=== PATIENT | male | born 1950 | race Hispanic/Latino ===

== ENCOUNTER → 2018-10-30 | Outpatient (CLI) | payer MEDICARE, OTHER | END | disposition home or self-care (01) | LOC: OIH 10:47 | PROVIDERS: ATTEND Family Medicine | DX: J44.9 Chronic obstructive pulmonary disease, unspecified (principal); I10 Essential (primary) hypertension; Z87.891 Personal history of nicotine dependence; M85.88 Other specified disorders of bone density and structure, other site; M47.814 Spondylosis without myelopathy or radiculopathy, thoracic region | CPT/HCPCS: 71046 ==

== ENCOUNTER 2023-04-19 16:42 | Emergency (ER) | payer OTHER ==
[~2023-04-19] VITALS: Ht 167.6 cm; Wt 68.0 kg
[2023-04-19 16:48] VITALS: BP 164/96; PULSE 88; RESP 16
[2023-04-19 17:48] LABS: BASOPHILS # (AUTO) 0.07 K/uL (0.00-0.20); BASOPHILS % (AUTO) 0.4 % (0.0-5.0); EOSINOPHILS % (AUTO) 1.6 % (0.0-8.0); HEMATOCRIT 48.5 % (42-54); IMMATURE GRANULOCYTE ABSOLUTE 0.08 K/uL (0-1); LYMPHOCYTES # (AUTO) 1.4 K/uL (1.0-4.8); LYMPHOCYTES % (AUTO) 7.6 % (21.0-51.0); MEAN CORPUSCULAR HEMOGLOBIN 31.5 pg (27.0-33.0); MEAN CORPUSCULAR HGB CONC 33.8 g/dL (32.0-36.0); MEAN CORPUSCULAR VOLUME 93.3 fL (79-99); MONOCYTES % (AUTO) 5.3 % (3.0-13.0); NEUTROPHILS % (AUTO) 84.7 % (40.0-77.0); PLATELET COUNT (AUTO) 217 K/uL (130-400); RED CELL DISTRIBUTION WIDTH 13.9 % (11.0-15.5); WHITE BLOOD COUNT (AUTO) 18.9 K/uL (4.8-10.8)
[2023-04-19 18:17] LABS: CREATININE 1.1 mg/dL (0.5-1.5)
[2023-04-19 18:22] LABS: ALBUMIN 4.2 g/dL (3.5-5.0); BILIRUBIN,TOTAL 0.6 mg/dL (0.2-1.0); TOTAL PROTEIN, SERUM 8.2 g/dL (6.0-8.3)
[2023-04-19] MEDS ORDERED: ACETAMINOPHEN 325 MG TAB PO ONE (19:00)
== END 2023-04-19 19:15 | disposition home or self-care (01) ==
LOC: EDH 16:42
DX: S20.219A Contusion of unspecified front wall of thorax, initial encounter (principal); E11.9 Type 2 diabetes mellitus without complications; I10 Essential (primary) hypertension; V89.2XXA Person injured in unspecified motor-vehicle accident, traffic, initial encounter; Y93.89 Activity, other specified; Y92.89 Other specified places as the place of occurrence of the external cause; Y99.8 Other external cause status
CPT/HCPCS: 36415; 71045; 80053; 84484; 85025; 93005

== ENCOUNTER 2025-06-19 18:11 | Emergency (ER) | payer OTHER, MEDICARE ==
[~2025-06-19] VITALS: Ht 167.6 cm; Wt 68.9 kg
--- NOTE | 2025-06-19 18:23 | NUR ---
PATIENT IN ROOM
--- NOTE | 2025-06-19 18:40 | NUR ---
PATIENT PUT ON 1L OF NC. PATIENT'S OXYGEN LEVEL 97%.
--- NOTE | 2025-06-19 18:54 | ERN ---
General Chief Complaint: Shortness of Breath Stated Complaint: SOB Time Seen by MD: 18:16 Source: patient History of Present Illness Initial Comments Patient is a 75-year-old male coming in complaining of shortness of breath. Patient states he has a history of COPD. Patient states that his symptoms has been ongoing for one week. He was given medication for his "wheezing" he states. Allergies: Coded Allergies: No Known Drug Allergies (Unverified Allergy, Unknown, 04/19/23) Past Medical History Past Medical History: Diabetes-Type II, Hypertension Past Surgical History: None Family History Family History: Negative Social History Social History: Negative, Lives with family ROS Dictation CONSTITUTIONAL: No chills, no fever, no weakness, no diaphoresis, no malaise. HEAD/FACE: No signs of trauma. EENT: No eye pain, no blurred vision, no tearing, no double vision, no ear pain, no ear discharge, no nose pain, no nasal congestion, no throat pain, no throat swelling, no mouth pain. RESPIRATORY: No cough, no orthopnea, SOB, no stridor, wheezing. CARDIOVASCULAR: No chest pain, no edema, no palpitations, no syncope. GASTROINTESTINAL/ABDOMINAL: No abdominal pain, no constipation, no diarrhea, no nausea, no vomiting. GENITOURINARY: No abnormal discharge, no dysuria, no frequent urination, no hematuria. No complaints of pain in the genitals. MUSCULOSKELETAL: No back pain, no gout, no joint pain, no joint swelling, no muscle pain, no muscle stiffness, no neck pain. INTEGUMENTARY: No change in color, no change in hair/nails, no dryness, no lesion, no lumps, no rash. NEUROLOGICAL/PSYCH: No anxiety, not depressed, no emotional problem, no headache, no numbness, no pre-existing deficit, no history of seizures, no tremors, no weakness. HEMATOLOGIC/LYMPHATIC: Not anemic, no history of blood clots, no apparent bleeding, no bruising, glands not swollen. All Systems Negative, Except as Noted. Physical Exam Physical Exam Dictation VITAL SIGNS: Reviewed. GENERAL APPEARANCE: Alert, oriented x3, no acute distress, obese. HEAD AND FACE: Non-traumatic. EYES: PERRL, pink conjunctivas, eyelid no trauma, anterior chamber clear. EARS: Pinnas intact and no signs of trauma or erythema. Ear canals clear and no discharge. TMs no erythema. NOSE: No discharge, no bleeding. OROPHARYNX: Mouth normal, teeth no caries, tongue pink. Pharynx clear, no erythema. Tonsils no exudates, no abscesses noted. Mucous membrane moist. NECK: Supple, non-tender, no thyromegaly, no masses, no JVD, no bruits. BREAST: Deferred. CHEST: No tenderness, no crepitus, no paradoxical movement, no retractions. LUNGS: Clear, well-ventilated, symmetric, no rales, wheezing, no rhonchi, no stridor, good breath sounds bilaterally. HEART: Regular rate, regular rhythm, no murmur, no gallops. VASCULAR: No peripheral edema. ABDOMEN: Soft, positive bowel sounds, nondistended, no guarding, nontender, no rebound, no masses no hepatomegaly, no splenomegaly, no Adams's sign, no hernias. RECTAL: Deferred. GENITAL: Deferred. NEUROLOGICAL: Normal speech, gross motor function intact, gross sensory function intact. MUSCULOSKELETAL: Neck nontender, full range of motion, back nontender, full range of motion. EXTREMITIES: Nontender, full range of motion. SKIN: Color pink, dry, no turgor, no rash, no lacerations, no abrasions, no contusions. LYMPHATICS: Deferred. Results Laboratory and Microbiology Lab and Micro Result Laboratory Tests Test 06/19/25 18:49 06/19/25 19:05 06/19/25 19:12 Influenza Type A Antigen Negative For Type A Influenza Type B Antigen Negative For Type B SARS-CoV-2, RNA, NAAT NEGATIVE SARS CoV-2 Urine Color YELLOW (YELLOW) Urine Appearance CLEAR (CLEAR) Urine pH 5.5 (5.0-8.0) Urine Specific [place] 1.017 (1.001-1.031) Urine Protein NEGATIVE mg/dL (NEGATIVE) Urine Glucose (UA) NEGATIVE mg/dL (NEGATIVE) Urine Ketones 5 mg/dL (NEGATIVE) H Urine Occult Blood +- (TRACE) (NEGATIVE) H Urine Nitrate NEGATIVE (NEGATIVE) Urine Bilirubin NEGATIVE mg/dL (NEGATIVE) Urine Urobilinogen 0.2 mg/dL (0.2-1.0) Urine Leukocyte Esterase NEGATIVE [place]/uL Urine RBC 2-5 /HPF (0-1) H Urine WBC 2-5 /HPF (0-1) H Urine Bacteria None /HPF (None Seen) White Blood Count 9.1 K/uL (4.8-10.8) Red Blood Count 5.02 MIL/uL (4.50-6.20) Hemoglobin 16.1 g/dL (14.0-18.0) Hematocrit 47.8 % (42-54) Mean Corpuscular Volume 95.2 fL (79-99) Mean Corpuscular Hemoglobin 32.1 pg (27.0-33.0) Mean Corpuscular Hemoglobin Concent 33.7 g/dL (32.0-36.0) Red Cell Distribution Width 13.8 % (11.0-15.5) Platelet Count 198 K/uL (130-400) Mean Platelet Volume 10.9 fL (7.5-10.5) H Immature Granulocyte % (Auto) 0.7 % (0-1) Neutrophils (%) (Auto) 61.5 % (40.0-77.0) Lymphocytes (%) (Auto) 17.5 % (21.0-51.0) L Monocytes (%) (Auto) 9.0 % (3.0-13.0) Eosinophils (%) (Auto) 10.6 % (0.0-8.0) H Basophils (%) (Auto) 0.7 % (0.0-5.0) Neutrophils # (Auto) 5.6 K/uL (1.8-7.7) Lymphocytes # (Auto) 1.6 K/uL (1.0-4.8) Monocytes # (Auto) 0.8 K/uL (0.1-1.0) Eosinophils # (Auto) 0.97 K/uL (0.00-0.70) H Basophils # (Auto) 0.06 K/uL (0.00-0.20) Absolute Immature Granulocyte (auto 0.06 K/uL (0-1) Nucleated Red Blood Cells 0.0 % (0.0-0.19) Sodium Level 142 mmol/L (136-145) Potassium Level 3.6 mmol/L (3.5-5.1) Chloride Level 103 mmol/L (101-111) Carbon Dioxide Level 29 mmol/L (21-32) Blood Urea Nitrogen 8 mg/dL (7-18) Creatinine 0.7 mg/dL (0.5-1.3) Glomerular Filtration Rate Calc 97 mL/min (>90) Random Glucose 99 mg/dL (70-105) Total Calcium 9.1 mg/dL (8.5-10.1) Troponin I High Sensitivity 12 ng/L (4-75) B-Type Natriuretic Peptide 12 pg/mL (0-100) Labs Reviewed?: Yes MDM MDM: Differential diagnosis: Fall, shortness of breath, asthma exacerbation, Rationale: Tests considered and ordered secondary to shared decision making i nclude: labs, ECG and radiology Previous outside records reviewed: Old ER visits. Risk of complication and/or morbidity or mortality of patient management: None Medications-Per medication reconciliation Need for hospitalization: Patient does meet criteria for hospitalization. Need for emergency major/minor surgery: No There are no social concerns with this patient. Prescription drug management Prescriptions will include symptomatic care Patient's prior external medical records from other ER visits were reviewed by me as indicated. Prior testing and results from previous visits were reviewed. Prior tests were taken into account with medical decision making and resource utilization, independent historian/historians were used to obtain complete medical history. Patient re-evaluated after neb treatment. Much better. Minimal wheeze to the left upper chest. Chest x-ray negative. We will discharge home with COPD exacerbation diagnosis and a script for prednisone, azithromycin, inhaler. I independently interpreted the test that were performed, results were reviewed by me and considered findings on radiology if ordered. Medical management and examination interpretation discussions were had by me with other qualified healthcare professionals as indicated for the patient's care. ED Course Orders Procedure Category Date Status Time Cbc With Differential LAB 06/19/25 Complete 18:34 12 Lead Ekg Tracing- EKG 06/19/25 Complete Technical 18:34 Troponin I High LAB 06/19/25 Complete Sensitivity 18:34 Urinalysis Profile LAB 06/19/25 Complete 18:34 Basic Metabolic Panel LAB 06/19/25 Complete 18:34 B-Type Natriuretic LAB 06/19/25 Complete Peptide 18:34 Covid Rna Naat LAB 06/19/25 Complete 18:34 Influenza Type A & B, LAB 06/19/25 Complete Rapid 18:34 Ipratropium/Albuterol PHA 06/19/25 Complete Neb (Duoneb) 19:00 Methylprednisolone PHA 06/19/25 Complete Succ 125mg (Solu-Medr 19:00 Chest 1vw RAD 06/19/25 Resulted 18:57 Current Medications Medications (Trade) Dose Ordered Sig/Long Route PRN Reason Start Time Stop Time Status Last Admin Dose Admin Albuterol (DUOneb) 2 udvial ONCE ONCE IH 06/19/25 19:00 06/19/25 19:01 DC 06/19/25 20:25 Methylprednisolone Sodium Succinate (Solu-medROL 125MG) 125 mg ONCE ONCE IVP 06/19/25 19:00 06/19/25 19:01 DC 06/19/25 19:01 Vital Signs Date Time Temp Pulse Resp B/P (MAP) Pulse Ox O2 Delivery O2 Flow Rate FiO2 06/19/25 20:25 89 18 06/19/25 19:38 84 18 165/84 95 Room Air* 0 21 06/19/25 18:25 98.1 93 15 180/99 94 Room Air* 0 21 06/19/25 18:14 98.1 93 20 180/99 94 Room Air 0 DX & DISP Disposition: Discharge Departure Impression: Primary Impression: COPD exacerbation Condition: Stable Scripts Albuterol Sulfate (Ventolin Hfa) 90 Mcg Hfa.aer.ad 2 PUFF IH Q4HPRN PRN for wheezing for 30 Days, #18 GM 0 Refills Prov: GER MAY MD 06/19/25 Prednisone (Prednisone) 10 Mg Tab.ds.pk 1 TAB PO DAILY for 5 Days, #21 TAB 0 Refills Prov: GER MAY MD 06/19/25 Azithromycin (Azithromycin) 500 Mg Tablet 1 TAB PO DAILY for 5 Days, #5 TAB 0 Refills Prov: GER MAY MD 06/19/25 Referrals: MAINE LINCOLN MD (PCP) JELANI TOBAR MD Jun 19, 2025 18:54 GER MAY MD Jun 19, 2025 20:54
--- NOTE | 2025-06-19 19:08 | EKG ---
[facility] Test Date: 2025-06-19 Test Time: 18:58:56 Pat Name: ATA OTERO Department: ED Room: Gender: M Ham Boner: [id number] : 1950 Requested By: JELANI TOBAR Order Number: [id number] Reading MD: Rivera Arteaga Measurements Intervals [place] Rate: 87 P: 76 SC: 124 QRS: -14 QRSD: 95 T: 85 QT: 401 QTc: 482 Interpretive Statements Sinus rhythm Nonspecific T abnormalities, lateral leads Compared to ECG 04/19/2023 17:29:07 T-wave abnormality now present Electronically Signed On 06-22-2025 13:06:08 ALARM INVESTIGATOR by Rivera Arteaga Please click the below link to view image of tracing.
[2025-06-19 19:19] LABS: SARS-CoV-2, RNA, NAAT NEGATIVE SARS CoV-2 (NEGATIVE)
[2025-06-19 19:24] LABS: IMMATURE GRANULOCYTE ABSOLUTE 0.06 K/uL (0-1); NUCLEATED RED BLOOD CELLS 0.0 % (0.0-0.19); PLATELET COUNT (AUTO) 198 K/uL (130-400); RED BLOOD CELL COUNT(AUTO) 5.02 MIL/uL (4.50-6.20); RED CELL DISTRIBUTION WIDTH 13.8 % (11.0-15.5); WHITE BLOOD COUNT (AUTO) 9.1 K/uL (4.8-10.8)
[2025-06-19 19:24] LABS: INFLUENZA TYPE A Negative For Type A (NEGATIVE); INFLUENZA TYPE B Negative For Type B (NEGATIVE)
[2025-06-19 19:26] LABS: APPEARANCE,URINE CLEAR (CLEAR); GLUCOSE, URINE (UA) NEGATIVE (NEGATIVE); LEUKOCYTE ESTERASE ,URINE NEGATIVE Leu/uL (NEGATIVE); NITRATE,URINE NEGATIVE (NEGATIVE); OCCULT BLOOD,URINE +- (TRACE) (NEGATIVE)
[2025-06-19 19:28] LABS: ADD UA MICROSCOPIC YES
[2025-06-19 19:43] LABS: CREATININE 0.7 mg/dL (0.5-1.3); GLOMERULAR FILTR. RATE CALC 97.0 mL/min (>90); GLUCOSE,RANDOM 99.0 mg/dL (70-105); SODIUM SERUM 142.0 mmol/L (136-145); UREA NITROGEN, BLOOD 8.0 mg/dL (7-18)
--- NOTE | 2025-06-19 20:20 | HMCIMG ---
EXAM: CR Chest, 1 View. CLINICAL HISTORY: SOB. COMPARISON: None provided. FINDINGS: LUNGS: There is no mass, infiltrate, or acute pulmonary abnormality. PLEURAL SPACES: No evidence of pleural effusion or pneumothorax. MEDIASTINUM: Cardiac size and mediastinal contours are within normal limits. Mild pulmonary venous congestion. BONES: No acute osseous abnormality. IMPRESSION: No acute cardiopulmonary pathology is evident. Mild pulmonary venous congestion. /[place]
[2025-06-19 20:25] VITALS: PULSE 89; RESP 18
[2025-06-19] MEDS ORDERED: PRED10TA23 PO (20:53)
[2025-06-19] MEDS ORDERED: ALBU18HF7 IH (20:53)
[2025-06-19] MEDS ORDERED: AZIT500T4 PO (20:53)
[2025-06-19 20:56] VITALS: BP 151/81; PULSE 88; RESP 19; TEMP 98.6; O2SAT 96
== END 2025-06-19 21:04 | disposition home or self-care (01) ==
LOC: EDH 18:11
DX: J44.1 Chronic obstructive pulmonary disease with (acute) exacerbation (principal); E11.9 Type 2 diabetes mellitus without complications; I10 Essential (primary) hypertension; Z20.822 Contact with and (suspected) exposure to COVID-19
CPT/HCPCS: 36415; 71045; 80048; 81001; 83880; 84484; 85025; 87635; 87804; 93005; 94640; 96374; 99283